=== PATIENT | male | born 1980 | race African-American/Black ===

== ENCOUNTER 2016-10-24 00:40 | Emergency (ER) | payer OTHER ==
[2016-10-24] MEDS ORDERED: LISINOPRIL10 MG PO (00:59)
[2016-10-24 01:48] LABS: URINE SOURCE CLEAN CATCH
[2016-10-24 01:53] LABS: URINE APPEARANCE CLEAR; URINE BILIRUBIN NEG (NEG); URINE BLOOD NEG (NEG); URINE COLOR YELLOW; URINE GLUCOSE NEG (NORM); URINE KETONE NEG (NEG); URINE LEUKOCYTE ESTERASE NEG (NEG); URINE NITRATE NEG (NEG); URINE PROTEIN NEG (NEG); URINE UROBILINOGEN 0.2 MG/DL (NORM)
[2016-10-24 01:55] LABS: MICRO INDICATED? NO
[2016-10-27 23:49] LABS: CHLAMYDIA TRACH Not Detected (Not Detected); N GONOR Not Detected (Not Detected)
== END 2016-10-24 02:35 | disposition home or self-care (01) ==
LOC: SED 00:40
DX: N34.2 Other urethritis (principal)
CPT/HCPCS: 81003; 87491; 87591; 96372; 99283; J0696